=== PATIENT | female | born 1940 | race Two or more races ===

== ENCOUNTER 2021-07-18 11:17 | Emergency (ER) | payer OTHER ==
[~2021-07-18] VITALS: Ht 170.2 cm; Wt 60.3 kg
[2021-07-18] MEDS ORDERED: ATENOLOL50 MG PO (11:54)
[2021-07-18] MEDS ORDERED: CHILDREN'S ASPI81 MG PO (11:54)
[2021-07-18] MEDS ORDERED: AMLODIPINE-OLM1 EAC2 (11:54)
[2021-07-18] MEDS ORDERED: VITAMIN C500 M6 PO (11:55)
[2021-07-18] MEDS ORDERED: ATORVASTATIN CA20 MG PO (11:55)
[2021-07-18] MEDS ORDERED: BUSPIRONE HCL7.5 MG (11:55)
[2021-07-18] MEDS ORDERED: VITAMIN B122500 MC1 PO (11:56)
[2021-07-18] MEDS ORDERED: OMEGA-31000 MG PO (11:56)
[2021-07-18] MEDS ORDERED: VITAMIN D310 MCG/1 M (11:56)
[2021-07-18] MEDS ORDERED: PROBIOTIC1 EAC2 PO (11:58)
[2021-07-18] MEDS ORDERED: CENTRUM SILVER1 EAC3 PO (11:58)
[2021-07-18] MEDS ORDERED: FLUCONAZOLE150 MG PO (16:05)
== END 2021-07-18 16:06 | disposition home or self-care (01) ==
LOC: ER 11:17
DX: N93.8 Other specified abnormal uterine and vaginal bleeding (principal)